=== PATIENT | male | born 2000 | race Caucasian/White ===

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

== ENCOUNTER 2019-07-26 12:32 | Emergency (ER) | payer OTHER ==
[~2019-07-26] VITALS: Ht 170.2 cm; Wt 99.8 kg
[~2019-07-26 12:32] MED LIST: ONDANSETRON ODT8 MG PO
--- OUTSIDE RECORDS SUMMARY | 2019-07-26 12:38 | XMS ---
PreManage Notification: EDUARDO RODRÍGUEZ Security Health Care Administrator Events No recent Security Events currently on file CRITERIA MET - Group Notification CARE PROVIDERS [facility] Current PHONE: Unknown BABATUNDE COX [facility] Current PHONE: Unknown Shira has no Care Guidelines for this patient. Rosita VISIT COUNT (12 MO.) 1 JENNIFER Rangel TOTAL 1 NOTE: Visits indicate total known visits. ED/UCC VISIT TRACKING (12 MO.) 07/26/2019 12:[address] [facility] TYPE: Emergency COMPLAINT: - HAND INJ INPATIENT VISIT TRACKING (12 MO.) No inpatient visits to display in this time frame [email or web address]
== END 2019-07-26 13:52 | disposition home or self-care (01) ==
LOC: ED 12:32
DX: S62.324A Displaced fracture of shaft of fourth metacarpal bone, right hand, initial encounter for closed fracture (principal); W55.12XA Struck by horse, initial encounter
CPT/HCPCS: 73130; 90471; 90715; 99283-25